=== PATIENT | female | born 1975 | race Caucasian/White ===

== ENCOUNTER → 2017-03-14 | Outpatient (CLI) | payer BC ==
--- NOTE | ~2017-03-14 | MY11 ---
[facility] A Service of [facility] & [facility] RADIOLOGY TEXT RESULTS PATIENT: TYREE HORVATH I LOCATION: [facility] : 71 UNIT #: [id number] AGE: [address]: Marily Lazar MD SEX: F ORDER DR: [id number] [address] [address] [id number] O MR#: [id number] Acc #: [id number] NAME: TYREE HORVATH : 1975 SEX: F STUDY DATE/TIME: 03/14/2017 11:16 UNIT: [facility] ROOM: STUDY DESCRIPTION: MY Mammogram Screening Dig Rodrick Attending Physician: Marily Lazar M.D. Referring Physician: Marily Lazar M.D. Ordering Physician: Marily Lazar M.D. Primary Care Physician: Marily Lazar M.D. MEDICAL IMAGING REPORT This report is preliminary unless electronic signature is present. EXAM Digital screening mammogram 03/14/2017 HISTORY 42-year-old woman, positive family history, grandmother age 59, maternal aunt age 60. Prior ultrasound-guided left breast biopsy September 2013. Annual screen. COMPARISON STUDIES Comparison mammograms 08/17/2013 with followup diagnostic left breast imaging and ultrasound-guided left breast biopsy 09/08/2013. Most recent screening comparison 02/16/2016. FINDINGS Digital imaging of each breast was completed utilizing screening protocol. Review includes FDA-approved CAD device. Breast parenchyma is dense and somewhat heterogeneous. There is continuing parenchymal dominance projecting in the upper hemisphere of the left breast anterior third. This appears to include some subtle stellate distortion. It is not clearly imaged or identified on the craniocaudal view. Biopsy marker projects inferior to this area on the MLO projection. It may be in the 12 o'clock axis. I believe additional imaging is recommended although this area is dominant on the prior mammograms. Recommend a true lateral projection and CC projection with high-resolution spot compression. I also recommend the diagnostic workup completed at [facility] as digital tomosynthesis would be advantageous in characterizing this appearance. Let me know if I can discuss this with you. Benign pattern in the right breast is stable. IMPRESSION Incomplete mammographic evaluation. Additional left breast imaging is recommended. See full report with recommendations relative to adding digital tomosynthesis to the diagnostic workup. BIRADS 0 additional left STS. [facility] A Service of [facility] & [facility] RADIOLOGY TEXT RESULTS PATIENT: TYREE HORVATH I LOCATION: [facility] : 71 UNIT #: [id number] AGE: [address]: Marily Lazar MD SEX: F ORDER DR: breast imaging recommended. Patients over the age of 40 are entered into a reminder system with target due date for the next mammogram. A result letter will also be sent to the patient. BIRADS: 0 - Need additional imaging evaluation and/or prior mammograms for comparison Dictated by... Lizandro Mendoza M.D. THIS IS AN ELECTRONICALLY VERIFIED REPORT Lizandro Mendoza M.D. at 03/17/2017 8:09 AM Jade TD: 03/14/2017 15:53 JOB #: [id number] MEDICAL IMAGING REPORT Page 1 of 1
== END | disposition home or self-care (01) ==
LOC: SMAM 10:42
DX: Z12.31 Encounter for screening mammogram for malignant neoplasm of breast (principal); Z80.3 Family history of malignant neoplasm of breast; Z98.890 Other specified postprocedural states
CPT/HCPCS: G0202

== ENCOUNTER → 2017-03-27 | Outpatient (CLI) | payer BC ==
--- NOTE | ~2017-03-27 | US24 ---
[facility] A Service of [facility] RADIOLOGY TEXT RESULTS PATIENT: TYREE HORVATH I LOCATION: [facility] : 71 UNIT #: [id number] AGE: [address]: Marily Lazar MD SEX: F ORDER DR: [id number] [facility] [address] [place], [place] [address] [id number] O MR#: [id number] Acc #: [id number] NAME: TYREE HORVATH I. : 1975 SEX: F STUDY DATE/TIME: 03/27/2017 15:23 UNIT: [facility] ROOM: STUDY DESCRIPTION: US Breast Unilateral Attending Physician: Marily Lazar M.D. Referring Physician: Marily Lazar M.D. Ordering Physician: Marily Lazar M.D. Primary Care Physician: Marily Lazar M.D. MEDICAL IMAGING REPORT This report is preliminary unless electronic signature is present EXAM Left breast diagnostic ultrasound. DATE 03/27/2017 HISTORY Question architectural distortion, one-view of previous screening mammogram of the left breast for which additional diagnostic imaging was recommended. COMPARISON Left breast diagnostic mammogram, 03/27/2017. Bilateral screening mammogram 03/14/2017, 02/16/2016, 08/17/2013. Left breast diagnostic mammogram and ultrasound . Ultrasound-guided core biopsy of left breast nodule, 09/08/2013. FINDINGS Targeted diagnostic imaging was obtained of the left breast in the 11 o'clock through the 1 o'clock axis. Normal fibroglandular tissue is seen. No cystic or solid nodule, architectural distortion or microcalcification is evident. IMPRESSION Left breast BIRADS 2. Benign findings. No features suspicious for malignancy mammographically or sonographically today. Patient has been advised to continue a monthly self breast examination and annual physician physical examination. Routine screening mammogram recommended in 1 year. Findings and recommendations were discussed with the patient today in the radiology department. Patients over the age of 40 are entered into a reminder system with target due date for the next mammogram. A result letter will also be sent to the [facility] A Service of [facility] RADIOLOGY TEXT RESULTS PATIENT: TYREE HORVATH I LOCATION: [facility] : 71 UNIT #: [id number] AGE: [address]: Marily Lazar MD SEX: F ORDER DR: patient. BIRADS: 2 Benign findings. Dictated by... Martha Knutson M.D. THIS IS AN ELECTRONICALLY VERIFIED REPORT Martha Knutson M.D. at 03/28/2017 2:23 PM NISREEN/mignon TD: 03/27/2017 18:49 JOB #: [id number] MEDICAL IMAGING REPORT Page 1 of 1 COPY
--- NOTE | ~2017-03-27 | MY7 ---
[facility] A Service of [facility] RADIOLOGY TEXT RESULTS PATIENT: TYREE HORVATH I LOCATION: [facility] : 71 UNIT #: [id number] AGE: [address]: Marily Lazar MD SEX: F ORDER DR: [id number] [facility] [address] [place], [place] [address] [id number] O MR#: [id number] Acc #: [id number] NAME: TYREE HORVATH I. : 1975 SEX: F STUDY DATE/TIME: 03/27/2017 14:58 UNIT: [facility] ROOM: STUDY DESCRIPTION: MY Mammogram Dx Dig Lt Attending Physician: Marily Lazar M.D. Referring Physician: Marily Lazar M.D. Ordering Physician: Marily Lazar M.D. Primary Care Physician: Marily Lazar M.D. MEDICAL IMAGING REPORT This report is preliminary unless electronic signature is present EXAM Left breast digital diagnostic mammogram with CAD DATE 03/27/2017 HISTORY Questionable architectural distortion and single view of the left breast on screening mammogram, for which additional diagnostic imaging was recommended. COMPARISON Bilateral screening mammogram 03/14/2017, 02/16/2016, 08/17/2013. Left breast diagnostic mammogram and ultrasound 09/08/2013. Ultrasound-guided core biopsy left breast nodule on 09/08/2013. FINDINGS True ML views were obtained of the left breast utilizing digital technique and reviewed with an FDA-approved CAD device. Heterogeneously dense fibroglandular tissue is demonstrated throughout the left breast. The region of question of architectural distortion is seen in the superior left breast MLO view has no abnormal correlate on today's true ML view. Additionally, there is increased fibroglandular tissue seen within the superior left breast on the MLO view on spot compression, without discernible mass lesion or architectural distortion. High-resolution spot compression was obtained of the anterior left breast on the CC view along the posterior nipple line, no architectural distortion is seen at that location, either. No suspicious cluster of microcalcifications. Biopsy clip is seen within the left breast close to the 3 o'clock axis. Targeted diagnostic ultrasound was performed of the left breast of the [facility] A Service of [facility] & [facility] RADIOLOGY TEXT RESULTS PATIENT: TYREE HORVATH I LOCATION: [facility] : 71 UNIT #: [id number] AGE: [address]: Marily Lazar MD SEX: F ORDER DR: same date. Normal fibroglandular tissue is seen. No cystic or solid abnormality, architectural distortion or microcalcification is evident. The left breast was imaged along the 11 o'clock through 1 o'clock axis. IMPRESSION No mammographic or sonographic features suspicious for malignancy today. Patient is advised to return for routine bilateral screening mammogram cycle, due in March 2018. Patient is advised to continue monthly self-breast examination and annual physician physical examination. Findings and recommendations were discussed with the patient today in the radiology department. Patient's over the age of 40 are entered into a reminder system with target due date for the next mammogram. A result letter will be sent to the patient. BIRADS: 2 Benign findings. Dictated by... Martha Knutson M.D. THIS IS AN ELECTRONICALLY VERIFIED REPORT Martha Knutson M.D. at 03/28/2017 2:[address] [facility]/renato TD: 03/27/2017 18:32 JOB #: [id number] MEDICAL IMAGING REPORT Page 1 of 1 COPY
== END | disposition home or self-care (01) ==
LOC: CWCC 14:30
DX: R92.8 Other abnormal and inconclusive findings on diagnostic imaging of breast (principal)
CPT/HCPCS: 76641; G0206